=== PATIENT | male | born 1970 | race Two or more races ===

== ENCOUNTER 2023-03-02 22:57 | Emergency (ER) | payer MEDICARE, OTHER ==
[~2023-03-02] VITALS: Ht 182.9 cm; Wt 124.7 kg
[2023-03-02] MEDS ORDERED: INSU100V28 (23:12)
[2023-03-02] MEDS ORDERED: TEMA30CA PO (23:12)
[2023-03-02] MEDS ORDERED: LOSA25TA27 PO (23:12)
[2023-03-02] MEDS ORDERED: HYDR-3973 PO (23:12)
[2023-03-02] MEDS ORDERED: CARV3.122 PO (23:12)
[2023-03-02] MEDS ORDERED: PANT40TA49 PO (23:12)
[2023-03-02] MEDS ORDERED: MAGN400O6 PO (23:12)
[2023-03-02] MEDS ORDERED: MAG-89 PO (23:12)
[2023-03-02] MEDS ORDERED: ACET650T10 PO (23:12)
[2023-03-02] MEDS ORDERED: POTA8CAP20 PO (23:12)
[2023-03-02 23:22] LABS: BASOPHILS # (AUTO) 0.1 K/UL (0.0-0.2); BASOPHILS % (AUTO) 1.7 % (0.0-2.0); EOSINOPHILS # (AUTO) 0.1 K/uL (0.0-0.7); EOSINOPHILS % (AUTO) 1.7 % (0.0-7.0); HEMATOCRIT 42.6 % (36.7-47.1); HEMOGLOBIN 13.4 g/dL (12.5-16.3); LYMPHOCYTES # (AUTO) 0.5 K/uL (0.8-4.8); LYMPHOCYTES % (AUTO) 7.7 % (20.5-51.5); MEAN CORPUSCULAR HEMOGLOBIN 22.2 uug (23.8-33.4); MEAN CORPUSCULAR HGB CONC 31 g/dL (32.5-36.3); MEAN CORPUSCULAR VOLUME 70.7 fL (73.0-96.2); MONOCYTES # (AUTO) 0.4 K/uL (0.1-1.30); MONOCYTES % (AUTO) 6.1 % (0.0-11.0); NEUTROPHILS # (AUTO) 5.3 K/uL (1.8-8.9); NEUTROPHILS % (AUTO) 82.8 % (38.5-71.5); PLATELET COUNT (AUTO) 299 K/uL (152-348); RED BLOOD CELL COUNT(AUTO) 6.03 MIL/uL (4.06-5.63); RED CELL DISTRIBUTION WIDTH 18.2 % (12.1-16.2); WHITE BLOOD COUNT (AUTO) 6.4 K/uL (3.6-10.2)
[2023-03-02 23:26] LABS: DIFFERENTIAL COMMENT 1
[2023-03-02 23:33] LABS: CALCIUM 8.8 mg/dL (8.5-10.1); CARBON DIOXIDE 34 mmol/L (21-32); CHLORIDE 101 mmol/L (98-107); CREATININE 1.3 mg/dL (0.6-1.3); GLUCOSE 130 mg/dL (74-106); POTASSIUM 3.4 mmol/L (3.5-5.1); SODIUM SERUM 140 mmol/L (136-145); UREA NITROGEN, BLOOD 37 mg/dL (7-18)
[2023-03-02 23:39] LABS: ALANINE AMINOTRANSFERASE 31 U/L (16-63); ALBUMIN 2.7 g/dL (3.4-5.0); ALKALINE PHOSPHATASE 83 U/L (50-136); ASPARTATE AMINOTRANSFERASE 36 U/L (15-37); BILIRUBIN,DIRECT 0.5 mg/dL (0.0-0.2); TOTAL PROTEIN, SERUM 6.8 g/dL (6.4-8.2)
[2023-03-03 00:07] LABS: ETHANOL < 3 MG/DL (0-10)
[2023-03-03] MEDS ORDERED: POTASSIUM CHLORIDE 20 MEQ TAB.PRT.SR PO ONE (00:30)
[2023-03-03] MEDS ORDERED: POTASSIUM CHLORIDE 20 MEQ TAB.PRT.SR ONE (01:21)
[2023-03-03 07:16] VITALS: BP 114/82; TEMP 97.6; O2SAT 95
== END 2023-03-03 07:18 | disposition home or self-care (01) ==
LOC: ER 23:00
DX: F29 Unspecified psychosis not due to a substance or known physiological condition (principal); E87.6 Hypokalemia; I50.9 Heart failure, unspecified; E11.9 Type 2 diabetes mellitus without complications; I48.91 Unspecified atrial fibrillation; F20.9 Schizophrenia, unspecified; Z79.4 Long term (current) use of insulin; Z79.899 Other long term (current) drug therapy
CPT/HCPCS: 36415; 71045; 84484; 85025; A4606; A4663; G0480